=== PATIENT | female | born 2000 | race Caucasian/White ===

== ENCOUNTER 2022-07-26 13:15 | Emergency (ER) | payer OTHER ==
[~2022-07-26] VITALS: Ht 157.5 cm; Wt 69.5 kg
[2022-07-26] MEDS ORDERED: IBUPROFEN 600 MG TAB PO STA (14:02)
[2022-07-26] MEDS ORDERED: IBUPROFEN 600 MG TAB ONE (14:08)
[2022-07-26] MEDS ORDERED: TIZANIDINE HCL4 MG PO (16:51)
[2022-07-26] MEDS ORDERED: NAPROSYN500 MG PO (16:52)
== END 2022-07-26 17:11 | disposition home or self-care (01) ==
LOC: FSED 13:22
DX: M54.12 Radiculopathy, cervical region (principal); S13.4XXA Sprain of ligaments of cervical spine, initial encounter; W01.198A Fall on same level from slipping, tripping and stumbling with subsequent striking against other object, initial encounter; Y93.01 Activity, walking, marching and hiking; Y92.89 Other specified places as the place of occurrence of the external cause; J45.909 Unspecified asthma, uncomplicated
CPT/HCPCS: 72125; 81025; 99283